=== PATIENT | female | born 1990 | race Caucasian/White ===

== ENCOUNTER 2017-10-20 20:16 | Emergency (ER) | payer SELFPAY ==
[2017-10-20 20:49] VITALS: BP 122/88
[2017-10-20] MEDS ORDERED: HYDROcodone/ACETAMIN 5-325 MG* 1 TAB PO ONE (21:44)
--- NOTE | 2017-10-20 22:05 | UC ---
FLU HPI - HPI Summary HPI Summary: This is a 27 yo breast feeding female who presents with c/o fever, chills, body aches, congestion and L ear pain. She has a 2 month old daughter and is concerned that she may have the flu. She reports and associated DIXON which she reports as severe. She has trialed multiple NSAIDs and APAP without relief. No significant cough, CP or SOB. No n/v/d. - History of Current Complaint Chief Complaint: UCGeneralIllness Stated Complaint: FLU-LIKE SYMPTOMS Hx Last Menstrual Period: Pain Intensity: 8 - Allergy/Home Medications Allergies/Adverse Reactions: Allergies Allergy/AdvReac Type Severity Reaction Status Date / Time No Known Allergies Allergy Verified 07/16/15 00:41 Home Medications: Home Medications Ibuprofen [Advil] 200 mg PO 10/20/17 [History] Phenylephrine/Dm/Acetaminop/GG [Tylenol Cold-Flu Severe Caplet] 10/20/17 [ History] PMH/Surg Hx/FS Hx/Imm Hx Previously Healthy: Yes - breast feeding - Surgical History Surgical History: None - Family History Known Family History: Positive: None - no influenza - Social History Alcohol Use: Rare Substance Use Type: None Smoking Status (MU): Never Smoked Tobacco Review of Systems Constitutional: Fever, Chills, Fatigue Skin: Negative Eyes: Negative ENT: Negative, Ear Ache, Nasal Discharge, Sinus Congestion Respiratory: Negative Cardiovascular: Negative Gastrointestinal: Negative Genitourinary: Negative Motor: Negative Neurovascular: Negative Musculoskeletal: Negative Neurological: Negative Psychological: Negative Is Patient Immunocompromised?: No All Other Systems Reviewed And Are Negative: Yes Physical Exam Triage Information Reviewed: Yes Appearance: Ill-Appearing Vital Signs: Initial Vital Signs Temp 99.5 F 10/20/17 20:41 Pulse 114 10/20/17 20:41 Resp 18 10/20/17 20:41 BP 122/88 10/20/17 20:41 Pulse Ox 98 10/20/17 20:41 Vital Signs Reviewed: Yes ENT: Positive: Pharyngeal erythema - mild, TM red - mild Neck exam: Normal Neck: Positive: Supple, Nontender Respiratory: Positive: Lungs clear, Normal breath sounds. Negative: Crackles, Stridor, Wheezing Cardiovascular Exam: Normal Cardiovascular: Positive: RRR, No Murmur Abdominal Exam: Normal Abdomen Description: Positive: Nontender Bowel Sounds: Positive: Present Musculoskeletal Exam: Normal Musculoskeletal: Positive: Strength Intact Neurological Exam: Normal Neurological: Positive: Alert Psychological Exam: Normal Psychological: Positive: Normal Response To Family Skin Exam: Normal Skin: Positive: rashes Diagnostics - Laboratory Diagnostic Studies Completed/Ordered: Rapid Influenza - neg Flu Course/Dx - Course Course Of Treatment: This is a 27 yo female who is breast feeding with c/o fever , chills, DIXON and congestion. Influenza testing neg. Recommended avoiding oral antihistamines as this will reduce her milk supply. Recommend NSAIDs and nasal spray to improve symptoms. Reviewed strategies to reduce transmission of her illness to her infant daughter. - Differential Dx/Diagnosis Differential Diagnosis/HQI/PQRI: Influenza, RSV, Upper Respiratory Infection Provider Diagnoses: 1. Acute viral URI Discharge - Discharge Plan Condition: Stable Disposition: HOME Patient Education Materials: Upper Respiratory Infection (ED) Forms: *Work Release Referrals: Missy Cho MD [Primary Care Provider] - Additional Instructions: Instructions: 1. Use Astelin (or similar product) nasal spray for congestion relief 2. Use ibuprofen/tylenol for pain and fever relief
== END 2017-10-20 22:03 | disposition home or self-care (01) ==
LOC: UCEAST 20:16
DX: J06.9 Acute upper respiratory infection, unspecified (principal)
CPT/HCPCS: 87502; 99212; G0463